=== PATIENT | male | born 1975 | race Caucasian/White ===

== ENCOUNTER 2018-04-12 10:06 | Emergency (ER) | payer OTHER ==
[~2018-04-12] VITALS: Wt 127.3 kg
[2018-04-12 10:09] VITALS: BP 142/79; PULSE 77; RESP 20
--- NOTE | 2018-04-12 11:37 | ERD ---
ER Documentation Chief Complaint Chief Complaint right testicular pain x 2 days HPI 42-year-old male, previously healthy, presents to the emergency department, complaining of acute right testicular pain for 2 days. The pain is dull, constant, 7/10, associated with increased firmness, no masses, no edema. The patient denies penile discharge, no urinary symptoms, no history of sexually transmitted infections. No fever or chills, no trauma. ROS All systems reviewed and are negative except as per history of present illness. Medications Home Meds Active Scripts Ibuprofen* (Motrin*) 400 Mg Tab, 400 MG PO Q8, #30 TAB Prov:JAKE PEREZ MD 04/12/18 Allergies Allergies: Coded Allergies: Penicillins (Verified Allergy, Intermediate, 04/12/18) PMhx/Soc Medical and Surgical Hx: pt denies Medical Hx, pt denies Surgical Hx Hx Alcohol Use: No Hx Substance Use: No Hx Tobacco Use: No Physical Exam Vitals Vital Signs Date Temp Pulse Resp B/P (MAP) Pulse Ox O2 O2 Flow FiO2 Time Delivery Rate 04/12/18 97.7 77 20 142/79 99 10:09 (100) Physical Exam Const: No acute distress Head: Atraumatic Eyes: Normal Conjunctiva ENT: Normal External Ears, Nose and Mouth. Neck: Full range of motion. No meningismus. Resp: Clear to auscultation bilaterally Cardio: Regular rate and rhythm, no murmurs Abd: Soft, non tender, non distended. Normal bowel sounds Skin: No petechiae or rashes Back: No midline or flank tenderness Ext: No cyanosis, or edema Neur: Awake and alert Psych: Normal Mood and Affect Results 24 hrs Laboratory Tests Test 04/12/18 11:45 Urine Color YELLOW Urine Clarity CLEAR Urine pH 5.0 Urine Specific [place] 1.029 Urine Ketones NEGATIVE mg/dL Urine Nitrite NEGATIVE mg/dL Urine Bilirubin NEGATIVE mg/dL Urine Urobilinogen NEGATIVE mg/dL Urine Leukocyte Esterase NEGATIVE Vicky/ul Urine Microscopic RBC 2 /HPF Urine Microscopic WBC 1 /HPF Urine Mucus MANY /HPF Urine Hemoglobin NEGATIVE mg/dL Urine Glucose NEGATIVE mg/dL Urine Total Protein NEGATIVE mg/dl Procedures/MDM During the medical encounter differential diagnosis like UTI, epididymitis, inguinal hernia, testicular torsion, varicocele, testicular mass were considered, therefore and a scrotal ultrasound and a were requested, see results above. Physical examination and clinical presentation consistent most likely with right testicular pain without evidence of acute scrotum During the ED course the patient remained stable, no new complaints. Results and clinical impression discussed with patient who agrees with management. The patient is stable to be treated outpatient and will be discharged home with a Rx for ibuprofen, some side effects of prescribed medications (headache, rash, nausea, vomiting, diarrhea, drowsiness, habituation, bleeding, hypertension, interactions with other medications) were reviewed. The patient was instructed to follow up with the primary care provider in the next 48h. If symptoms persist, worsen or new symptoms develop, then patient should return to the ED immediately. Instructions explained and given directly by me to the patient with acknowledgment and demonstrated understanding. Disclaimer: Inadvertent spelling and grammatical errors are likely due to EHR/dictation software use and do not reflect on the overall quality of patient care. Also, please note that the electronic time recorded on this note does not necessarily reflect the actual time of the patient encounter. Departure Diagnosis: Primary Impression: Right testicular pain Condition: Stable Additional Instructions: Thank you very much for allowing us to participate in your care. Your health and safety is our top priority at [facility]. Call your primary care doctor TOMORROW for an appointment during the next 2-4 days and bring all the information and medications prescribed. Have prescriptions filled and follow precisely the directions on the label. If the symptoms get worse and your provider is unavailable, return to the Emergency Department immediately. JAKE PEREZ MD Apr 12, 2018 11:37
[2018-04-12] MEDS ORDERED: IBUP-1561 PO (12:50)
== END 2018-04-12 12:56 | disposition home or self-care (01) ==
LOC: FTE 10:06
DX: N50.811 Right testicular pain (principal)
CPT/HCPCS: 76870; 81003